=== PATIENT | female | born 1975 | race Caucasian/White ===

== ENCOUNTER 2017-07-31 00:11 | Observation (INO) | payer OTHER ==
[2017-07-31 00:35] LABS: ADD MAN DIFF? NO
[2017-07-31 00:37] LABS: BASO # 0.1 x10^3/uL (0.0-0.2); BASO % 1 % (0-3); EOS # 0.4 x10^3/uL (0.0-0.7); EOS % 2 % (0-3); HEMOGLOBIN 13.2 g/dL (12.0-15.5); LYMPH # 3.5 x10^3/uL (1.0-4.8); LYMPH % 24 % (24-48); MEAN CORPUSCULAR HEMOGLOBIN 31 pg (25-35); MEAN CORPUSCULAR HGB CONC 35 g/dL (31-37); MEAN CORPUSCULAR VOLUME 90 fL (79-100); MONO # 1.2 x10^3/uL (0.0-1.1); MONO % 8 % (0-9); NEUT # 9.3 x10^3uL (1.8-7.7); NEUT % 64 % (31-73); PLATELET COUNT 263 x10^3/uL (140-400); RED BLOOD COUNT 4.23 x10^6/uL (3.50-5.40); RED CELL DISTRIBUTION WIDTH 13.7 % (11.5-14.5); WHITE BLOOD COUNT 14.5 x10^3/uL (4.0-11.0)
[2017-07-31 00:53] LABS: ALBUMIN 2.7 g/dL (3.4-5.0); ALBUMIN/GLOBULIN RATIO 0.6 (1.0-1.7); ALK PHOS 178 U/L (46-116); ALT (SGPT) 18 U/L (14-59); ANION GAP 9 (6-14); BLOOD UREA NITROGEN 31 mg/dL (7-20); BUN/CREATININE RATIO 18 (6-20); CALCIUM 8.1 mg/dL (8.5-10.1); CARBON DIOXIDE 26 mmol/L (21-32); CHLORIDE 93 mmol/L (98-107); CREATININE 1.7 mg/dL (0.6-1.0); GFR 33.5; LIPASE 263 U/L (73-393); MAGNESIUM 2.5 mg/dL (1.8-2.4); POTASSIUM 4.3 mmol/L (3.5-5.1); SODIUM 128 mmol/L (136-145); TOTAL BILIRUBIN 0.2 mg/dL (0.2-1.0); TOTAL PROTEIN 6.9 g/dL (6.4-8.2)
[2017-07-31 00:54] LABS: GLUCOSE 664 mg/dL (70-99)
[2017-07-31 00:54] LABS: TROPONINI < 0.017 ng/mL (0.000-0.055)
[2017-07-31] MEDS: ASPIRIN CHEWABLE 81 MG TABLET. PO (00:58)
[2017-07-31] MEDS: IV NORMAL SALINE 1000ML BAG 1,000 ML IV ×4 (00:59→18:15)
[2017-07-31] MEDS: INSULIN REGULAR 100 UNIT/ML 3ML VIAL. IV ×2 (01:03→03:06)
[2017-07-31 01:06] LABS: AST (SGOT) 16 U/L (15-37)
[2017-07-31] MEDS: IV NORMAL SALINE 500ML BAG 500 ML IV (01:30)
[2017-07-31 01:57] LABS: BILIRUBIN,URINE NEGATIVE (NEG); CLARITY,URINE CLEAR; COLOR,URINE YELLOW; GLUCOSE,URINE >=1000 mg/dL (NEG); NITRITE,URINE NEGATIVE (NEG); PH,URINE 5.5; PROTEIN,URINE 30 mg/dL (NEG-TRACE); UROBILINOGEN,URINE 0.2 mg/dL (0.2 mg/dL)
[2017-07-31 02:07] LABS: BACTERIA,URINE MANY /HPF (0-FEW); HYALINE CASTS, URINE FEW /HPF; RBC,URINE 0 /HPF (0-2); SQUAMOUS EPITHELIAL CELL,UR FEW /LPF
[2017-07-31 02:07] LABS: POC GLUCOSE 575 mg/dL (70-99)
[2017-07-31] MEDS ORDERED: DEXTROSE 50% 25 GM / 50ML DISP.SYRIN. IV ×2 (02:30→08:15)
[2017-07-31 02:55] LABS: POC GLUCOSE 519 mg/dL (70-99)
[2017-07-31 04:34] LABS: POC GLUCOSE 352 mg/dL (70-99)
[2017-07-31] MEDS: NICOTINE 21MG PATCH. TD ×2 (04:51→09:00)
[2017-07-31] MEDS: INSULIN LISPRO 300 UNITS/3 ML INSULN.PEN. SQ ×4 (04:56→17:16)
[2017-07-31 07:56] LABS: POC GLUCOSE 361 mg/dL (70-99)
[2017-07-31] MEDS ORDERED: INSULIN LISPRO 300 UNITS/3 ML INSULN.PEN. SQ (08:00)
[2017-07-31] MEDS ORDERED: ONDANSETRON PF 4 MG/2 ML VIAL. IV (08:15)
[2017-07-31] MEDS: LISINOPRIL 5 MG TABLET. PO (09:00)
[2017-07-31] MEDS: LEVOTHYROXINE 100 MCG TABLET PO (09:18)
[2017-07-31] MEDS: GABAPENTIN 400 MG CAPSULE. PO ×2 (09:18→20:48)
[2017-07-31] MEDS: POLYETHYLENE GLYCOL 3350 17 GM PACKET. PO (09:19)
[2017-07-31 09:33] LABS: ANION GAP 8 (6-14); BLOOD UREA NITROGEN 28 mg/dL (7-20); CALCIUM 7.6 mg/dL (8.5-10.1); CARBON DIOXIDE 26 mmol/L (21-32); CHLORIDE 101 mmol/L (98-107); CREATININE 1.2 mg/dL (0.6-1.0); GLUCOSE 380 mg/dL (70-99); POTASSIUM 3.9 mmol/L (3.5-5.1); SODIUM 135 mmol/L (136-145)
[2017-07-31] MEDS: INSULIN GLARGINE 300 UNITS/3 ML INSULN.PEN. SQ ×2 (10:02→20:52)
[2017-07-31 11:30] LABS: POC GLUCOSE 364 mg/dL (70-99)
[2017-07-31 15:31] LABS: CHOLESTEROL 344 mg/dL (0-200); HDLC 31 mg/dL (40-60); LDLC 230 mg/dL (0-100); NON-HDL CHOLESTEROL 313 mg/dL (0-129); TRIGLYCERIDES 414 mg/dL (0-150); VLDLC 83 mg/dL (0-40)
[2017-07-31 15:37] LABS: CHOLESTEROL/HDL RATIO 11.1
[2017-07-31 15:37] LABS: TROPONINI < 0.017 ng/mL (0.000-0.055)
[2017-07-31 17:00] LABS: POC GLUCOSE 234 mg/dL (70-99)
[2017-07-31 17:06] LABS: THYROID STIM HORMONE (TSH) 95.049 uIU/mL (0.358-3.74)
[2017-07-31 18:53] LABS: NEG OBC UR NEG; POS OBC UR POS; U PREG PATIENT NEGATIVE (NEG)
[2017-07-31 20:38] LABS: POC GLUCOSE 323 mg/dL (70-99)
[2017-07-31] MEDS: ATORVASTATIN CALCIUM 40 MG TABLET. PO (20:48)
[2017-07-31 23:11] LABS: HEMOGLOBIN A1C 11.6 % (4.8-5.6)
[2017-08-01] MEDS: LEVOTHYROXINE 100 MCG TABLET PO (06:09)
[2017-08-01 08:07] LABS: POC GLUCOSE 171 mg/dL (70-99)
[2017-08-01] MEDS: NICOTINE 21MG PATCH. TD (08:20)
[2017-08-01] MEDS: POLYETHYLENE GLYCOL 3350 17 GM PACKET. PO (08:21)
[2017-08-01] MEDS: GABAPENTIN 400 MG CAPSULE. PO (08:21)
[2017-08-01] MEDS: LISINOPRIL 5 MG TABLET. PO (08:26)
[2017-08-01] MEDS: INSULIN LISPRO 300 UNITS/3 ML INSULN.PEN. SQ ×4 (08:30→17:27)
[2017-08-01] MEDS: INSULIN GLARGINE 300 UNITS/3 ML INSULN.PEN. SQ (10:30)
[2017-08-01 11:47] LABS: POC GLUCOSE 397 mg/dL (70-99)
[2017-08-01 16:46] LABS: POC GLUCOSE 240 mg/dL (70-99)
[2017-08-01] MEDS: ACETAMINOPHEN 500 MG TABLET PO (17:21)
== END 2017-08-01 19:21 | disposition left against medical advice (07) ==
LOC: ER 00:11 → 5 NORTH 02:13
DX: R07.89 Other chest pain (principal); I10 Essential (primary) hypertension; E66.9 Obesity, unspecified; D72.829 Elevated white blood cell count, unspecified; E11.65 Type 2 diabetes mellitus with hyperglycemia; E11.42 Type 2 diabetes mellitus with diabetic polyneuropathy; E78.5 Hyperlipidemia, unspecified; F17.210 Nicotine dependence, cigarettes, uncomplicated; Z68.34 Body mass index [BMI] 34.0-34.9, adult; Z53.21 Procedure and treatment not carried out due to patient leaving prior to being seen by health care provider; Z79.4 Long term (current) use of insulin; Z79.899 Other long term (current) drug therapy; Z82.49 Family history of ischemic heart disease and other diseases of the circulatory system; Z83.3 Family history of diabetes mellitus
CPT/HCPCS: 36415; 71045; 78451; 80048; 80053; 80061; 81001; 81025; 82962; 83036; 83690; 83735; 84443; 84484; 84702; 85025; 87086; 87186; 93005; 93017; 93306; 96361; 96372; 96374; 96376; 99285-25; A9500; G0378; G0379; J1815; J7030; J7040